=== PATIENT | female | born 1960 | race Caucasian/White ===

== ENCOUNTER 2019-09-08 12:55 | Inpatient (IN) | payer OTHER ==
[~2019-09-08] VITALS: Ht 167.6 cm; Wt 93.8 kg
[2019-09-08 15:51] LABS: CULTURE INDICATED? NO; MICROSCOPIC NOT IND
[2019-09-08 15:57] LABS: ALBUMIN 3.5 g/dL (3.4-5.0); CHLORIDE 102 mmol/L (98-107); CREATININE 0.84 mg/dL (0.55-1.02)
[2019-09-08 16:05] LABS: BILIRUBIN,TOTAL 1.4 mg/dL (0.2-1.0)
[2019-09-08 16:09] LABS: MD YES; MEAN CORPUSCULAR HEMOGLOBIN 29.3 pg (27.0-34.8); MEAN CORPUSCULAR HGB CONC 33.2 g/dL (32.4-35.8); MEAN CORPUSCULAR VOLUME 88.4 fL (80-100); MEAN PLATELET VOLUME 9.4 fL (7.4-10.4); PLATELET COUNT 261 x10^3/uL (130-400); RED BLOOD COUNT 4.83 x10^6/uL (3.82-5.3); RED CELL DISTRIBUTION WIDTH 13.6 % (9.6-15.2)
[2019-09-08 16:13] LABS: BAND#(MANUAL) 0.78 x10^3/uL; BANDS%(MANUAL) 10 % (0-7); BASOS#(MANUAL) 0.08 x10^3/uL (0-0.1); BASOS% (MANUAL) 1 % (0-1); EOS#(MANUAL) 0.08 x10^3/uL (0.0-0.4); EOS% (MANUAL) 1 % (1-7); LYMPH#(MANUAL) 1.56 x10^3/uL (1-3.4); LYMPHS% (MANUAL) 20 % (22-44); MONOS#(MANUAL) 0.16 x10^3/uL (0.3-2.7); MONOS% (MANUAL) 2 % (2-9); SEG#(MANUAL) 5.15 x10^3/uL (1.8-6.8); SEGS% (MANUAL) 66 % (42-75)
[2019-09-08 16:14] LABS: ANISOCYTOSIS 1+
[2019-09-08 16:15] LABS: <PLATELET ESTIMATE> ADEQUATE; <PLT MORPHOLOGY> NORMAL PLT MORPH
[2019-09-08 16:33] LABS: ANION GAP 16 mmol/L (5-15)
--- NOTE | 2019-09-08 16:51 | NUR ---
TO ROOM FROM LOBBY. NAD.
[2019-09-08 16:59] LABS: ALANINE AMINOTRANSFERASE 54 U/L (12-78); CALCIUM 9.7 mg/dL (8.5-10.1); TOTAL PROTEIN 8.3 g/dL (6.4-8.2)
[2019-09-08 17:00] LABS: ALKALINE PHOSPHATASE 97 U/L (45-117)
[2019-09-08] MEDS ORDERED: SODIUM CHLORIDE 0.9% 1,000 ML IV ONE (17:21)
[2019-09-08] MEDS ORDERED: ONDANSETRON 2MG/ML, 2ML ONE (17:23)
[2019-09-08] MEDS ORDERED: MORPHINE SULFATE 4 MG/ML, 1ML ONE (17:24)
[2019-09-08] MEDS ORDERED: FAMOTIDINE 20 MG/2 ML ONE (17:25)
[2019-09-08] MEDS ORDERED: FAMOTIDINE 20 MG/2 ML IV ONE (17:30)
[2019-09-08] MEDS ORDERED: ONDANSETRON 2MG/ML, 2ML IVPush ONE (17:30)
[2019-09-08] MEDS ORDERED: SODIUM CHLORIDE FLUSH 10ML SYR IVF ONE (17:30)
[2019-09-08] MEDS ORDERED: MORPHINE SULFATE 4 MG/ML, 1ML IVPush PRN (17:30)
[2019-09-08] MEDS ORDERED: SODIUM POLY SULFONATE UDC 15 GM/60 ML ONE (17:41)
[2019-09-08] MEDS ORDERED: INSULIN SINGLE DOSE, ER ONE (17:44)
[2019-09-08] MEDS ORDERED: SODIUM CHLORIDE 0.9% 1,000 ML IV SCH (17:45)
[2019-09-08] MEDS ORDERED: SODIUM POLYSTYRENE SULFONATE ORAL SUSP PO ONE (18:00)
[2019-09-08] MEDS ORDERED: INSULIN REGULAR 100 UNITS/ML, 3ML VIAL IVPush ONE (18:00)
[2019-09-08] MEDS ORDERED: LABETALOL 5MG/ML, 20ML IVPush PRN (18:00)
[2019-09-08] MEDS ORDERED: CALCIUM GLUCONATE 9.2 MEQ in SODIUM CHLORIDE 0.9% 100 ML IV ONE (18:00)
[2019-09-08] MEDS ORDERED: DEXTROSE 50%, 50ML SYRINGE IVPush ONE (18:00)
[2019-09-08] MEDS ORDERED: ONDANSETRON 2MG/ML, 2ML IVPush PRN (18:00)
[2019-09-08] MEDS: ENOXAPARIN 40 MG/0.4 ML SQ SCH (18:05)
[2019-09-08 18:14] LABS: HDL CHOLESTEROL (DIRECT) 19 mg/dL (40-60)
[2019-09-08 18:27] LABS: CHOL/HDL RATIO 13.8; CHOLESTEROL, TOTAL 263 mg/dL (140-239); HDL CHOL % 7 % (28-40)
[2019-09-08 18:31] LABS: TRIGLYCERIDES 3330 mg/dL (50-200)
--- NOTE | 2019-09-08 18:32 | NUR ---
REPORT GIVEN TO RECIEVING BINA CASEY
[2019-09-08] MEDS: morphine SULFATE 10 MG/ML, 1ML IVPush PRN ×2 (20:36→20:38)
[2019-09-08 20:53] VITALS: BP 95/60
[2019-09-08 22:06] LABS: MICROSCOPIC NOT IND
[2019-09-08 22:07] LABS: CULTURE INDICATED? NO
[2019-09-09] MEDS: morphine SULFATE 10 MG/ML, 1ML IVPush PRN ×5 (01:18→18:19)
[2019-09-09 02:05] VITALS: BP 114/78
[2019-09-09 06:28] LABS: MEAN CORPUSCULAR HEMOGLOBIN 30.4 pg (27.0-34.8); MEAN CORPUSCULAR HGB CONC 35.4 g/dL (32.4-35.8); MEAN CORPUSCULAR VOLUME 85.8 fL (80-100); RED BLOOD COUNT 3.85 x10^6/uL (3.82-5.3); RED CELL DISTRIBUTION WIDTH 13.6 % (9.6-15.2)
[2019-09-09 06:32] LABS: ALBUMIN 2.9 g/dL (3.4-5.0); CHLORIDE 109 mmol/L (98-107)
[2019-09-09 06:37] LABS: CHOL/HDL RATIO 11.7; CHOLESTEROL, TOTAL 234 mg/dL (140-239); CREATININE 0.93 mg/dL (0.55-1.02); HDL CHOL % 9 % (28-40); HDL CHOLESTEROL (DIRECT) 20 mg/dL (40-60)
[2019-09-09 06:42] LABS: ALKALINE PHOSPHATASE 69 U/L (45-117); BILIRUBIN,TOTAL 0.9 mg/dL (0.2-1.0)
[2019-09-09 06:46] LABS: TRIGLYCERIDES 1698 mg/dL (50-200)
[2019-09-09 07:30] VITALS: BP 133/82
[2019-09-09 07:32] LABS: ALANINE AMINOTRANSFERASE 44 U/L (12-78); ANION GAP 11 mmol/L (5-15)
[2019-09-09 07:33] LABS: MD YES; PLATELET COUNT 154 x10^3/uL (130-400); TOTAL PROTEIN 6.2 g/dL (6.4-8.2)
[2019-09-09 07:36] LABS: <RBC MORPHOLOGY> NORMAL; BAND#(MANUAL) 0.24 x10^3/uL; BANDS%(MANUAL) 4 % (0-7); EOS#(MANUAL) 0.06 x10^3/uL (0.0-0.4); EOS% (MANUAL) 1 % (1-7); LYMPH#(MANUAL) 1.36 x10^3/uL (1-3.4); LYMPHS% (MANUAL) 23 % (22-44); MONOS#(MANUAL) 0.18 x10^3/uL (0.3-2.7); MONOS% (MANUAL) 3 % (2-9); SEG#(MANUAL) 4.07 x10^3/uL (1.8-6.8); SEGS% (MANUAL) 69 % (42-75)
[2019-09-09 07:37] LABS: <PLATELET ESTIMATE> ADEQUATE; <PLT MORPHOLOGY> NORMAL PLT MORPH
[2019-09-09] MEDS: PANTOPRAZOLE 40 MG IV IVPush SCH (10:25)
[2019-09-09] MEDS: FENOFIBRATE 145 MG TABLET PO SCH (10:25)
[2019-09-09 13:55] VITALS: BP 104/82
[2019-09-09] MEDS: ACETAMINOPHEN 325 MG TABLET PO PRN (16:28)
[2019-09-09] MEDS: SODIUM CHLORIDE 0.9% 1,000 ML IV SCH (17:09)
[2019-09-09] MEDS: ENOXAPARIN 40 MG/0.4 ML SQ SCH (18:19)
[2019-09-09 20:04] VITALS: BP 118/78
[2019-09-09] MEDS: ATORVASTATIN 40 MG TABLET PO SCH (20:18)
[2019-09-10 02:15] VITALS: BP 106/70
[2019-09-10] MEDS: SODIUM CHLORIDE 0.9% 1,000 ML IV SCH ×3 (02:39→17:04)
[2019-09-10 05:41] LABS: BASOPHILS # (AUTO) 0.02 x10^3/uL (0-0.1); BASOPHILS % (AUTO) 0 % (0-1); EOSINOPHILS # (AUTO) 0.16 x10^3/uL (0-0.4); EOSINOPHILS % (AUTO) 3 % (1-7); LYMPHOCYTES # (AUTO) 0.97 x10^3/uL (1-3.4); LYMPHOCYTES % (AUTO) 19 % (22-44); MD NO; MEAN CORPUSCULAR HEMOGLOBIN 30.1 pg (27.0-34.8); MEAN CORPUSCULAR HGB CONC 34.5 g/dL (32.4-35.8); MEAN CORPUSCULAR VOLUME 87.3 fL (80-100); MEAN PLATELET VOLUME 8.4 fL (7.4-10.4); MONOCYTES # (AUTO) 0.39 x10^3/uL (0.2-0.8); MONOCYTES % (AUTO) 7 % (2-9); NEUTROPHILS # (AUTO) 3.68 x10^3/uL (1.8-6.8); NEUTROPHILS % (AUTO) 71 % (42-75); PLATELET COUNT 147 x10^3/uL (130-400); RED BLOOD COUNT 3.65 x10^6/uL (3.82-5.3); RED CELL DISTRIBUTION WIDTH 13.2 % (9.6-15.2)
[2019-09-10 05:49] LABS: ALBUMIN 2.7 g/dL (3.4-5.0); ANION GAP 7 mmol/L (5-15); CALCIUM 8.1 mg/dL (8.5-10.1); CHLORIDE 111 mmol/L (98-107); CREATININE 0.69 mg/dL (0.55-1.02)
[2019-09-10 05:51] LABS: ALKALINE PHOSPHATASE 77 U/L (45-117); BILIRUBIN,TOTAL 0.8 mg/dL (0.2-1.0); TOTAL PROTEIN 6.1 g/dL (6.4-8.2); TRIGLYCERIDES 984 mg/dL (50-200)
[2019-09-10 06:00] LABS: ALANINE AMINOTRANSFERASE 41 U/L (12-78)
[2019-09-10 07:49] VITALS: BP 107/68
[2019-09-10] MEDS: ACETAMINOPHEN 325 MG TABLET PO PRN ×3 (08:32→21:04)
[2019-09-10] MEDS: FENOFIBRATE 145 MG TABLET PO SCH (08:33)
[2019-09-10] MEDS: PANTOPRAZOLE 40 MG IV IVPush SCH (08:33)
[2019-09-10] MEDS ORDERED: POTASSIUM CHLORIDE 20 MEQ TAB.ER.PRT PO ONE (09:00)
[2019-09-10 12:09] VITALS: BP 112/63
[2019-09-10] MEDS: ENOXAPARIN 40 MG/0.4 ML SQ SCH (18:00)
[2019-09-10 19:21] VITALS: BP 126/92
[2019-09-10] MEDS: ATORVASTATIN 40 MG TABLET PO SCH (21:02)
[2019-09-11] MEDS: SODIUM CHLORIDE 0.9% 1,000 ML IV SCH ×2 (00:49→07:46)
[2019-09-11 01:26] VITALS: BP 107/59
[2019-09-11] MEDS: ACETAMINOPHEN 325 MG TABLET PO PRN (06:38)
[2019-09-11] MEDS: PANTOPRAZOLE 40 MG IV IVPush SCH (07:45)
[2019-09-11] MEDS: FENOFIBRATE 145 MG TABLET PO SCH (07:45)
[2019-09-11] MEDS ORDERED: ATOR40TA78 PO (10:16)
[2019-09-11] MEDS ORDERED: FENO145T30 PO (10:16)
== END 2019-09-11 12:50 | disposition home or self-care (01) | DRG 439 ==
LOC: ED 17:21 → EDIP 17:22 → SUATTDRO 17:24 → ED 17:56 → 3N 18:38 → DCLOUNGE 09-11 12:40
PROVIDERS: ADMIT Hospitalist; ATTEND Hospitalist
DX: K85.20 Alcohol induced acute pancreatitis without necrosis or infection (principal); R65.10 Systemic inflammatory response syndrome (SIRS) of non-infectious origin without acute organ dysfunction; K86.0 Alcohol-induced chronic pancreatitis; E78.1 Pure hyperglyceridemia; E87.5 Hyperkalemia; E66.9 Obesity, unspecified; K76.0 Fatty (change of) liver, not elsewhere classified; Z91.19 Patient's noncompliance with other medical treatment and regimen; Z68.33 Body mass index [BMI] 33.0-33.9, adult
CPT/HCPCS: 36415; 96374; 96375; 99285; J3490; 76700; 80053; 80061; 81003; 82150; 83690; 83735; 84100; 84478; 85025; 93005; G0378; J0610; J1650; J2405; C9113; J1815; J2270; J7030

== ENCOUNTER → 2019-12-01 | Outpatient (CLI) | payer OTHER ==
[~2019-12-01] MED LIST: ATOR40TA78 PO; FENO145T19 PO
== END | disposition home or self-care (01) ==
LOC: CVU 08:41
PROVIDERS: ATTEND Internal Medicine Cardiovascular Disease
DX: I35.8 Other nonrheumatic aortic valve disorders (principal); I31.3 Pericardial effusion (noninflammatory); I51.7 Cardiomegaly
CPT/HCPCS: 93306

== ENCOUNTER → 2020-03-18 | Outpatient (CLI) | payer OTHER ==
[2020-03-18 13:33] LABS: BASOPHILS # (AUTO) 0.02 x10^3/uL (0-0.1); BASOPHILS % (AUTO) 1 % (0-1); EOSINOPHILS # (AUTO) 0.16 x10^3/uL (0-0.4); EOSINOPHILS % (AUTO) 4 % (1-7); LYMPHOCYTES # (AUTO) 1.29 x10^3/uL (1-3.4); LYMPHOCYTES % (AUTO) 30 % (22-44); MD NO; MEAN CORPUSCULAR HEMOGLOBIN 28.9 pg (27.0-34.8); MEAN CORPUSCULAR HGB CONC 32.7 g/dL (32.4-35.8); MEAN CORPUSCULAR VOLUME 88.4 fL (80-100); MEAN PLATELET VOLUME 9.4 fL (7.4-10.4); MONOCYTES # (AUTO) 0.21 x10^3/uL (0.2-0.8); MONOCYTES % (AUTO) 5 % (2-9); NEUTROPHILS # (AUTO) 2.67 x10^3/uL (1.8-6.8); NEUTROPHILS % (AUTO) 61 % (42-75); PLATELET COUNT 206 x10^3/uL (130-400); RED BLOOD COUNT 4.35 x10^6/uL (3.82-5.3); RED CELL DISTRIBUTION WIDTH 12.8 % (9.6-15.2)
[2020-03-18 13:41] LABS: ALANINE AMINOTRANSFERASE 40 U/L (12-78); ALBUMIN 4.3 g/dL (3.4-5.0); ANION GAP 4 mmol/L (5-15); CALCIUM 9.7 mg/dL (8.5-10.1); CHLORIDE 109 mmol/L (98-107); CREATININE 1.08 mg/dL (0.55-1.02)
[2020-03-18 13:50] LABS: ALKALINE PHOSPHATASE 53 U/L (45-117); BILIRUBIN,TOTAL 0.6 mg/dL (0.2-1.0); CHOL/HDL RATIO 7.1; CHOLESTEROL, TOTAL 128 mg/dL (140-239); FREE T4 (FREE THYROXINE) 1.05 ng/dL (0.76-1.46); HDL CHOL % 14 % (28-40); HDL CHOLESTEROL (DIRECT) 18 mg/dL (40-60); LDL CHOLESTEROL,CALCULATED 42 mg/dL (54-169); LDL/HDL RATIO 2.3 (0.5-3.0); TOTAL PROTEIN 7.7 g/dL (6.4-8.2); TRIGLYCERIDES 340 mg/dL (50-200); VLDL CHOLESTEROL 68 mg/dL (0-25)
== END | disposition home or self-care (01) ==
LOC: LAB 12:56
PROVIDERS: ATTEND Internal Medicine Cardiovascular Disease
DX: E78.1 Pure hyperglyceridemia (principal); E78.5 Hyperlipidemia, unspecified; E87.5 Hyperkalemia; R94.5 Abnormal results of liver function studies; I10 Essential (primary) hypertension; E55.9 Vitamin D deficiency, unspecified; K85.90 Acute pancreatitis without necrosis or infection, unspecified; R53.83 Other fatigue
CPT/HCPCS: 36415; 80053; 80061; 82306; 83690; 83721; 84439; 84443; 85025

== ENCOUNTER → 2020-11-04 | Outpatient (CLI) | payer OTHER ==
[2020-11-04 14:08] LABS: ALANINE AMINOTRANSFERASE 34 U/L (12-78); ALBUMIN 4.4 g/dL (3.4-5.0); ANION GAP 7 mmol/L (5-15); CHLORIDE 109 mmol/L (98-107); CHOLESTEROL, TOTAL 149 mg/dL (140-239); CREATININE 1.19 mg/dL (0.55-1.02)
[2020-11-04 14:10] LABS: ALKALINE PHOSPHATASE 53 U/L (45-117); BILIRUBIN,TOTAL 0.6 mg/dL (0.2-1.0); CHOL/HDL RATIO 6.2; HDL CHOL % 16 % (28-40); HDL CHOLESTEROL (DIRECT) 24 mg/dL (40-60); TOTAL PROTEIN 7.6 g/dL (6.4-8.2); TRIGLYCERIDES 557 mg/dL (50-200)
== END | disposition home or self-care (01) ==
LOC: LAB 13:30
PROVIDERS: ATTEND Internal Medicine Cardiovascular Disease
DX: Z00.00 Encounter for general adult medical examination without abnormal findings (principal); I10 Essential (primary) hypertension; E55.9 Vitamin D deficiency, unspecified; E78.1 Pure hyperglyceridemia; E78.5 Hyperlipidemia, unspecified; E87.5 Hyperkalemia; R07.89 Other chest pain; R94.5 Abnormal results of liver function studies
CPT/HCPCS: 36415; 80053; 80061; 83721